=== PATIENT | female | born 1960 | race African-American/Black ===

== ENCOUNTER 2017-08-23 08:41 | Emergency (ER) | payer MEDICAID, OTHER ==
[~2017-08-23] VITALS: Ht 162.6 cm; Wt 74.0 kg
[~2017-08-23 08:41] MED LIST: ASA; B/P MEDS
[2017-08-23] MEDS ORDERED: NITROGLYCERIN 0.4MG TABLET SL SL PRN (10:00)
[2017-08-23 10:25] LABS: BASOPHILS % 0.7 % (0.0-2.0); EOSINOPHILS % 3.2 % (0.0-5.0); HEMATOCRIT. 38.8 % (36.0-48.0); LYMPHOCYTES % 20.8 % (20.0-50.0); MEAN CORPUSCULAR HEMOGLOBIN 28.9 pg (28.0-32.0); MEAN CORPUSCULAR VOLUME 86.2 fL (81.0-99.0); MONOCYTES % 8.9 % (2.0-8.0); NEUTROPHILS % 66.4 % (40.0-76.0); PLATELET 229 x1000/uL (130-400); RED CELL DISTRIBUTION WIDTH 13.7 % (11.6-14.6)
[2017-08-23 10:31] LABS: CHLORIDE 107 mEq/L (98-107)
[2017-08-23 10:40] LABS: D-DIMER 0.44 mg/L FEU (<0.50); PARTIAL THROMBOPLASTIN TIME 27.8 sec (23.4-31.0); PROTHROMBIN TIME 10.7 sec (9.4-11.6)
[2017-08-23] MEDS ORDERED: ASPIRIN 325MG EC TABLET PO ONE (11:45)
[2017-08-23] MEDS ORDERED: GUAIFENESIN-DM 200MG-20MG/10ML UDC PO ONE (12:00)
[2017-08-23 13:49] VITALS: BP 140/78
== END 2017-08-23 14:32 | disposition short-term general hospital (02) ==
LOC: ER 09:04
DX: R07.89 Other chest pain (principal); R06.02 Shortness of breath; R05 Cough; J02.9 Acute pharyngitis, unspecified; H57.8 Other specified disorders of eye and adnexa; I10 Essential (primary) hypertension; Z87.891 Personal history of nicotine dependence
CPT/HCPCS: 36415; 71045; 80053; 83880; 84484; 85025; 85379; 85610; 85730; 86850; 86900; 86901; 93005; 99285; Z7610